=== PATIENT | male | born 1960 | race African-American/Black ===

== ENCOUNTER 2021-12-15 22:04 | Emergency (ER) | payer MEDICAID ==
[~2021-12-15] VITALS: Ht 172.7 cm; Wt 73.0 kg
[2021-12-15] MEDS ORDERED: ALBUTEROL (0.083%) 2.5MG/3ML NEB HHN STA (22:25)
[2021-12-15] MEDS ORDERED: IPRATROPIUM BROMIDE (0.02%) 0.5MG/2.5ML NEB HHN STA (22:25)
[2021-12-15] MEDS ORDERED: METHYLPREDNISOLONE SOD SUCC 125 MG/2 ML VIAL IV STA (22:25)
[2021-12-15 22:56] LABS: BASOPHILS % 1.8 % (0.0-2.0); EOSINOPHILS % 11.9 % (0.0-5.0); HEMATOCRIT. 31.3 % (42.0-52.0); HEMOGLOBIN. 9.7 g/dL (14.0-18.0); LYMPHOCYTES % 27.9 % (20.0-50.0); MEAN CORPUSCULAR HEMOGLOBIN 22.1 pg (28.0-32.0); MEAN CORPUSCULAR VOLUME 71.2 fL (80.0-94.0); MEAN PLATELET VOLUME 7.9 fl (7.4-10.4); MONOCYTES % 7.6 % (2.0-8.0); NEUTROPHILS % 50.8 % (40.0-76.0); PLATELET 313 x1000/uL (130-400)
[2021-12-15 23:08] LABS: CHLORIDE 101 mEq/L (98-107)
[2021-12-16 01:00] VITALS: BP 124/74
[2021-12-16] MEDS ORDERED: P20 MT (01:08)
[2021-12-16] MEDS ORDERED: ALBU6.7H9 INH (01:08)
== END 2021-12-16 01:30 | disposition home or self-care (01) ==
LOC: ER 22:04
DX: J44.1 Chronic obstructive pulmonary disease with (acute) exacerbation (principal); D64.9 Anemia, unspecified; I50.9 Heart failure, unspecified; F17.290 Nicotine dependence, other tobacco product, uncomplicated
CPT/HCPCS: 36415; 71045; 80053; 83880; 84484; 85025; 93005; 94644; 96374; 99285; 99406; J2930; Z7610

== ENCOUNTER 2022-12-19 22:47 | Inpatient (IN) | payer MEDICAID ==
[~2022-12-19] VITALS: Ht 180.3 cm; Wt 74.8 kg
[~2022-12-19 22:47] MED LIST: ALBU6.7H3 INH; P20 MT
[2022-12-19] MEDS ORDERED: IPRATROPIUM BROMIDE (0.02%) 0.5MG/2.5ML NEB HHN STA (23:55)
[2022-12-19] MEDS ORDERED: METHYLPREDNISOLONE SOD SUCC 125 MG/2 ML VIAL IV STA (23:55)
[2022-12-19] MEDS ORDERED: ALBUTEROL (0.083%) 2.5MG/3ML NEB HHN STA (23:55)
[2022-12-20 00:37] LABS: BASOPHILS % 0.8 % (0.0-2.0); EOSINOPHILS % 7.3 % (0.0-5.0); HEMATOCRIT. 28.9 % (42.0-52.0); HEMOGLOBIN. 8.4 g/dL (14.0-18.0); LYMPHOCYTES % 29.5 % (20.0-50.0); MEAN CORPUSCULAR HEMOGLOBIN 19.1 pg (28.0-32.0); MEAN CORPUSCULAR VOLUME 65.8 fL (80.0-94.0); MEAN PLATELET VOLUME 8.5 fl (7.4-10.4); MONOCYTES % 5.3 % (2.0-8.0); NEUTROPHILS % 57.1 % (40.0-76.0); PLATELET 214 x1000/uL (130-400); RED BLOOD CELL COUNT 4.39 mill/uL (4.7-6.1); RED CELL DISTRIBUTION WIDTH 20.4 % (11.6-14.6)
[2022-12-20 00:46] LABS: CHLORIDE 102 mEq/L (98-107)
[2022-12-20 01:39] LABS: PROTHROMBIN TIME 10.7 sec (9.6-11.0)
[2022-12-20] MEDS ORDERED: ALBUTEROL (0.083%) 2.5MG/3ML NEB HHN NR (04:15)
[2022-12-20] MEDS ORDERED: IPRATROPIUM BROMIDE (0.02%) 0.5MG/2.5ML NEB HHN NR (04:15)
[2022-12-20] MEDS ORDERED: METHYLPREDNISOLONE SOD SUCC 125 MG/2 ML VIAL IV NR (04:15)
[2022-12-20] MEDS ORDERED: DOCUSATE SODIUM 100MG CAPSULE PO PRN (05:45)
[2022-12-20] MEDS ORDERED: GUAIFENESIN 200MG/10ML SUGAR FREE UDC PO PRN (05:45)
[2022-12-20] MEDS ORDERED: ACETAMINOPHEN 325MG TABLET PO PRN ×2 (05:45)
[2022-12-20] MEDS ORDERED: ONDANSETRON HCL 4MG/2ML INJ IV PRN (05:45)
[2022-12-20] MEDS ORDERED: IPRATROPIUM/ALBUTEROL 0.5-3(2.5)MG/3ML NEB NEB PRN (05:45)
[2022-12-20] MEDS ORDERED: CLONIDINE 0.1MG TABLET PO PRN (05:45)
[2022-12-20] MEDS ORDERED: IPRATROPIUM BROMIDE (0.02%) 0.5MG/2.5ML NEB HHN PRN (06:00)
[2022-12-20] MEDS ORDERED: ALBUTEROL (0.083%) 2.5MG/3ML NEB HHN PRN (06:00)
[2022-12-20] MEDS: FUROSEMIDE 40MG/4ML VIAL IV SCH (10:21)
[2022-12-20] MEDS: METHYLPREDNISOLONE SOD SUCC 125 MG/2 ML VIAL IV SCH ×3 (10:21→18:05)
[2022-12-20] MEDS: GUAIFENESIN 600MG ER TABLET PO SCH ×2 (10:21→22:31)
[2022-12-20] MEDS: FAMOTIDINE 20MG TABLET PO SCH (22:31)
[2022-12-21] MEDS: METHYLPREDNISOLONE SOD SUCC 125 MG/2 ML VIAL IV SCH ×5 (03:22→23:23)
[2022-12-21 04:43] VITALS: BP 127/81
[2022-12-21 08:00] VITALS: BP 140/84
[2022-12-21] MEDS: GUAIFENESIN 600MG ER TABLET PO SCH ×2 (09:04→20:23)
[2022-12-21] MEDS: FUROSEMIDE 40MG/4ML VIAL IV SCH (09:04)
[2022-12-21] MEDS ORDERED: *PATIENT'S OWN MEDICATION STORAGE XX SCH (09:45)
[2022-12-21 12:00] VITALS: BP 117/72
[2022-12-21 12:49] LABS: CLARITY URINE CLEAR (CLEAR); COLOR URINE YELLOW (YELLOW); KETONES URINE NEGATIVE (NEGATIVE); LEUKOCYTE ESTERASE URINE NEGATIVE (NEGATIVE); NITRITE URINE NEGATIVE (NEGATIVE); OCCULT BLOOD URINE NEGATIVE (NEGATIVE); PH URINE 6.5 (4.5-8.0); PROTEIN URINE NEGATIVE (NEGATIVE); SPECIFIC GRAVITY URINE 1.022 (1.005-1.030); UROBILINOGEN URINE 0.2 E.U./dL (0.2-1.0)
[2022-12-21 13:13] LABS: *AMPHETAMINES SCREEN URINE PRESUMTIVE POSITIVE (NEGATIVE); *BARBITURATES SCREEN URINE NEGATIVE (NEGATIVE); *BENZODIAZEPINES SCREEN URINE NEGATIVE (NEGATIVE); *COCAINE SCREEN URINE NEGATIVE (NEGATIVE); CANNABINOID URINE SCREEN NEGATIVE (NEGATIVE); METHADONE URINE SCREEN NEGATIVE (NEGATIVE); OPIATES URINE SCREEN NEGATIVE (NEGATIVE); PHENCYCLIDINE URINE SCREEN NEGATIVE (NEGATIVE)
[2022-12-21 16:00] VITALS: BP 117/68
[2022-12-21] MEDS: MAGNESIUM/ALUMINUM HYDROXIDE/SIMETHICONE 30ML UDC PO PRN (17:42)
[2022-12-21] MEDS ORDERED: BICT1TAB PO (19:25)
[2022-12-21 20:00] VITALS: BP 128/74
[2022-12-21] MEDS: FAMOTIDINE 20MG TABLET PO SCH (20:23)
[2022-12-22] VITALS: BP 155/91
[2022-12-22 04:00] VITALS: BP 127/76
[2022-12-22] MEDS: METHYLPREDNISOLONE SOD SUCC 125 MG/2 ML VIAL IV SCH ×4 (05:01→23:24)
[2022-12-22 08:00] VITALS: BP 116/64
[2022-12-22] MEDS: GUAIFENESIN 600MG ER TABLET PO SCH ×2 (08:28→20:30)
[2022-12-22] MEDS: BIKTARVY 50-200-25 MG TABLET PO SCH (08:28)
[2022-12-22] MEDS: FUROSEMIDE 40MG/4ML VIAL IV SCH (08:28)
[2022-12-22 12:00] VITALS: BP 109/67
[2022-12-22 16:00] VITALS: BP 123/77
[2022-12-22 20:00] VITALS: BP 129/84
[2022-12-22] MEDS: FAMOTIDINE 20MG TABLET PO SCH (20:30)
[2022-12-23] VITALS: BP 131/80
[2022-12-23 04:00] VITALS: BP 119/73
[2022-12-23] MEDS: METHYLPREDNISOLONE SOD SUCC 125 MG/2 ML VIAL IV SCH ×2 (05:24→12:33)
[2022-12-23 06:53] LABS: BASOPHILS % 0.1 % (0.0-2.0); HEMATOCRIT. 35.7 % (42.0-52.0); HEMOGLOBIN. 10.3 g/dL (14.0-18.0); LYMPHOCYTES % 13.7 % (20.0-50.0); MEAN CORPUSCULAR HEMOGLOBIN 19.4 pg (28.0-32.0); MEAN CORPUSCULAR VOLUME 66.8 fL (80.0-94.0); MEAN PLATELET VOLUME 8.4 fl (7.4-10.4); MONOCYTES % 1.5 % (2.0-8.0); NEUTROPHILS % 84.7 % (40.0-76.0); PLATELET 472 x1000/uL (130-400); RED BLOOD CELL COUNT 5.34 mill/uL (4.7-6.1); RED CELL DISTRIBUTION WIDTH 20.2 % (11.6-14.6)
[2022-12-23 07:15] LABS: CHLORIDE 100 mEq/L (98-107)
[2022-12-23 07:28] LABS: HDL CHOLESTEROL 104 mg/dL (40-59); LDL CHOLESTEROL 58 mg/dL (5-100)
[2022-12-23 08:00] VITALS: BP 136/87
[2022-12-23] MEDS: GUAIFENESIN 600MG ER TABLET PO SCH (08:52)
[2022-12-23] MEDS: FUROSEMIDE 40MG/4ML VIAL IV SCH (08:52)
[2022-12-23] MEDS: BIKTARVY 50-200-25 MG TABLET PO SCH (09:00)
[2022-12-23] MEDS ORDERED: IPRA42SP BOTHNSTRLS (10:23)
[2022-12-23] MEDS ORDERED: P20 MT (10:23)
[2022-12-23] MEDS ORDERED: AZIT500T8 MT (10:23)
[2022-12-23] MEDS ORDERED: ALBU6.7H3 INH (10:23)
[2022-12-23] MEDS: MAGNESIUM/ALUMINUM HYDROXIDE/SIMETHICONE 30ML UDC PO PRN (10:41)
[2022-12-23 11:31] LABS: BG BASE EXCESS 3.1 mmol/L (-2.0-2.0); BG DEOXYHEMOGLOBIN 7.2 % (0.0-5.0); BG FRACTION INSPIRED OXYGEN 21; BG HCO3 ACT 27.6 mmol/L (22.0-26.0); BG METHEMOGLOBIN 0.3 % (0.0-1.5); BG OXYGEN SATURATION 92.8 % (92.0-98.5); BG OXYHEMOGLOBIN 92.5 % (94.0-97.0); BG PCO2 42.1 mmHg (35.0-45.0); BG PH 7.435 (7.350-7.450); BG PO2 67.4 mmHg (75.0-100.0); BG SAMPLE SITE RIGHT BRACHIAL; BG TOTAL HEMOGLOBIN 10.4 g/dL (12.0-18.0); BG VENT MODE ROOM AIR
[2022-12-23 12:00] VITALS: BP 128/79
[2022-12-23 15:28] VITALS: BP 128/79
[2022-12-23 16:00] VITALS: BP 132/77
[2022-12-23 21:19] LABS: PLATELET ESTIMATE INCREASED
== END 2022-12-23 18:39 | disposition home or self-care (01) | DRG 140 ==
LOC: ER 23:54 → EDBEDREQ 12-20 05:04 → EDBEDREQTM 12-20 05:04 → MICUSO 12-20 05:54 → 7WST 12-21 04:45
PROVIDERS: ADMIT Internal Medicine; ATTEND Internal Medicine
DX: J44.1 Chronic obstructive pulmonary disease with (acute) exacerbation (principal); J96.00 Acute respiratory failure, unspecified whether with hypoxia or hypercapnia; E44.1 Mild protein-calorie malnutrition; I50.9 Heart failure, unspecified; I11.0 Hypertensive heart disease with heart failure; D50.9 Iron deficiency anemia, unspecified; F17.210 Nicotine dependence, cigarettes, uncomplicated; Z20.822 Contact with and (suspected) exposure to COVID-19; Z21 Asymptomatic human immunodeficiency virus [HIV] infection status; Z68.23 Body mass index [BMI] 23.0-23.9, adult; Z87.01 Personal history of pneumonia (recurrent)
CPT/HCPCS: 36415; 36600; 71045; 80048; 80053; 80061; 80305; 81003; 82270; 82375; 82805; 83036; 83880; 84484; 85025; 86850; 86900; 87070; 87426; 93005; 93306; 93970; 94640; 94644; 96374; 97162; 99285; C9803; J1940; J2930